=== PATIENT | male | born 1935 | race Caucasian/White ===

== ENCOUNTER 2017-09-25 19:53 | Inpatient (IN) | payer SELFPAY ==
[~2017-09-25] VITALS: Ht 182.9 cm; Wt 108.9 kg
[2017-09-25] MEDS ORDERED: ATROPINE SULFATE 0.4 MG/1 ML VIAL ONE (20:14)
[2017-09-25] MEDS ORDERED: SODIUM BICARBONATE 8.4% INJ 50ML SYRINGE ONE (20:30)
[2017-09-25] MEDS ORDERED: ALBUTEROL SULF 2.5 MG/0.5ML(0.5%) NEB SOLN NEB ONE (20:30)
[2017-09-25] MEDS ORDERED: ALBUTEROL SULF 2.5 MG/0.5ML(0.5%) NEB SOLN ONE (20:33)
[2017-09-25] MEDS ORDERED: NOREPINEPHRINE 16 MG/500ML KIT 500 ML IV SCH (20:48)
[2017-09-25] MEDS ORDERED: DOPamine 1600MCG/ML D5W 250 ML IV SCH (20:48)
[2017-09-25] MEDS ORDERED: SODIUM CHLORIDE 0.9% 1,000 ML IV ONE (21:00)
[2017-09-25] MEDS ORDERED: ATROPINE SULFATE 0.4 MG/1 ML VIAL IV ONE (21:00)
[2017-09-25 21:10] LABS: Urine Bacteria NONE SEEN /hpf (None Seen); Urine Blood Negative /uL (Negative); Urine Specific Gravity 1.007 (1.001-1.035); Urine WBC 1 /hpf (0 - 3)
[2017-09-25 21:12] VITALS: BP 70/44
[2017-09-25 21:16] LABS: Amphetamine Screen, Urine NEGATIVE (NEGATIVE); Barbiturate Scree,Urine NEGATIVE (NEGATIVE); Benzodiazephine Screen, Urine NEGATIVE (NEGATIVE); Cannabinoid Screen, Urine NEGATIVE (NEGATIVE); Cocaine Screen, Urine NEGATIVE (NEGATIVE); Opiate Scree,Urine NEGATIVE (NEGATIVE); Phencyclidine Screen, Urine NEGATIVE (NEGATIVE)
[2017-09-25] MEDS ORDERED: DEXTROSE (50%) 50ML SYRG IV ONE (21:30)
[2017-09-25 21:49] LABS: Albumin 2.7 g/dL (3.4-5.0); BUN/Creatinine Ratio 11.1; Calcium 8.2 mg/dL (8.5-10.1); Magnesium 3.1 mg/dL (1.6-2.6)
[2017-09-25 21:50] LABS: Hematocrit 48.1 % (41.0-53.0); Hemoglobin 15.3 g/dL (13.5-17.5); Mean Corpuscular Hemoglobin 33.5 pg (28.0-32.0); Mean Corpuscular Hgb Conc. 31.7 g/dL (32.0-36.0); Mean Corpuscular Volume 105.7 fL (80.0-100.0); Platelet Count (auto) 258 10^3/uL (140-450); Red Blood Cells 4.55 10^6/uL (4.5-5.90); Red Cell Distribution Width 15.2 % (11.8-14.3); White Blood Cell 22.3 10^3/uL (4.4-10.8)
[2017-09-25 21:54] LABS: Basophils % (manual) 0 (0.0-2.0); Blast Cells 0; Eosinophils % (manual) 0 (0-7); Lactic Acid w/Reflex 13.7 mmol/L (0.4-2.0); Myelocytes % 0; Promyelocytes % 0; Reactive Lymphocytes 0
[2017-09-25 21:58] LABS: Bilirubin, Total 0.5 mg/dL (0.2-1.0); Total Protein 7.2 g/dL (6.4-8.2)
[2017-09-25] MEDS ORDERED: THIAMINE INJ 100 MG, MULTIPLE VITAMIN 10 ML, FOLIC ACID 1 MG, MAGNESIUM SULF SDV 50% 8 ... IV SCH ×5 (22:00)
[2017-09-25] MEDS ORDERED: MVI in SODIUM CHLORIDE 0.9% 1,010 ML ONE (22:08)
[2017-09-25] MEDS ORDERED: HETASTARCH 500 ML IV ONE ×2 (22:19→22:30)
[2017-09-25 22:50] VITALS: BP 68/40
[2017-09-25 22:50] LABS: Band Neutrophils % (manual) 5; Lymphocytes % (manual) 25 (10.0-50.0); Metamyelocytes % 2; Monocytes % (manual) 3 (0-12)
[2017-09-25] MEDS ORDERED: DEXTROSE (50%) 50ML SYRG IV PRN (23:00)
[2017-09-25] MEDS: PIPERACILLIN-TAZOB 3.375GM 100 ML IV SCH (23:00)
[2017-09-25] MEDS ORDERED: VASOPRESSIN 50 UNITS in D5W 5% 247.5 ML IV SCH (23:00)
[2017-09-25] MEDS ORDERED: NITROGLYCERIN 0.4 MG SL TAB SL PRN (23:00)
[2017-09-25] MEDS ORDERED: ACETAMINOPHEN 325 MG TAB PO PRN (23:00)
[2017-09-25] MEDS ORDERED: SODIUM BICARBONATE 50ML VIAL 100 ML in SOD CHL 0.45% 1,000 ML IV SCH (23:00)
[2017-09-25] MEDS ORDERED: SODIUM BICARBONATE 8.4 % INJ 50ML VIAL IV ONE (23:00)
[2017-09-25] MEDS ORDERED: MORPHINE SULFATE 8mg/ml INJ SDV IV PRN (23:00)
[2017-09-25] MEDS ORDERED: VANCOMYCIN PER PHARMACY 0 MG IV SCH (23:00)
[2017-09-25] MEDS ORDERED: VANCOMYCIN 1,500 MG in D5W 5% 250 ML IV ONE (23:15)
[2017-09-25] MEDS ORDERED: VANCOMYCIN 1GM/250ML 250 ML IV ONE (23:17)
[2017-09-25 23:18] VITALS: BP 68/40
[2017-09-26] MEDS ORDERED: InsuLIN REG 1unit/0.01ml Soln (100units/ml) SC SCH
[2017-09-26] MEDS ORDERED: ACCU-CHEK COMFORT CURVE STRIP VI SCH
[2017-09-26] MEDS: PIPERACILLIN-TAZOB 3.375GM 100 ML IV SCH
[2017-09-26 00:18] LABS: INR 1.68 (0.9-1.15); Partial Thromboplastin Time 54.1 sec (22.64-33.71); Prothrombin Time 18.4 sec (9.37-12.3)
[2017-09-26] MEDS ORDERED: MIDAZOLAM DRIP 50 mg/50mL 50 ML IV SCH (00:21)
[2017-09-26 00:24] VITALS: BP 94/64
[2017-09-26] MEDS ORDERED: VASOPRESSIN 20 UNIT/ML ONE ×2 (00:27→00:37)
[2017-09-26 02:26] VITALS: BP 77/52
[2017-09-26] MEDS ORDERED: SODIUM BICARBONATE 8.4% INJ 50ML SYRINGE ONE (02:38)
[2017-09-26] MEDS ORDERED: SODIUM BICARBONATE 8.4 % INJ 50ML VIAL IV ONE (02:45)
[2017-09-26] MEDS ORDERED: LACTATED RINGER'S 1,000 ML IV ONE (03:00)
[2017-09-26 03:45] VITALS: BP 91/56
[2017-09-26] MEDS ORDERED: DOPamine 1600mCg/ml 400MG/250ml NSorD5 KIT/BAG IV ONE (04:44)
[2017-09-26] MEDS ORDERED: SODIUM BICARBONATE 8.4% INJ 50ML SYRINGE IV ONE (04:44)
[2017-09-26] MEDS ORDERED: ATROPINE SULF 0.5 MG/5ML SYR IV ONE (04:44)
[2017-09-26] MEDS ORDERED: ENOXAPARIN SOD 30 MG/0.3 ML SYRINGE SC SCH (10:00)
[2017-09-26] MEDS ORDERED: ASPirin 81 mg TAB PO SCH (10:00)
[2017-09-26] MEDS ORDERED: PANTOPRAZOLE 40 MG/10 ML VIAL IV SCH (10:00)
[2017-09-26] MEDS ORDERED: VANCOMYCIN 1,250 MG in D5W 5% 250 ML IV SCH (21:00)
== END 2017-09-26 04:45 | disposition expired | DRG 871 ==
LOC: EDBD 19:53 → ER 19:53 → TELE 19:54
PROVIDERS: ADMIT Nurse Practitioner; ATTEND Nurse Practitioner
PROC: 5A1935Z Respiratory Ventilation, Less than 24 Consecutive Hours (ICD-10-PCS; principal; 2017-09-25)
PROC: 5A12012 Performance of Cardiac Output, Single, Manual (ICD-10-PCS; 2017-09-25)
PROC: 0BH17EZ Insertion of Endotracheal Airway into Trachea, Via Natural or Artificial Opening (ICD-10-PCS; 2017-09-25)
DX: A41.9 Sepsis, unspecified organism (principal); J96.00 Acute respiratory failure, unspecified whether with hypoxia or hypercapnia; I46.9 Cardiac arrest, cause unspecified; G93.1 Anoxic brain damage, not elsewhere classified; E87.2 Acidosis; I95.9 Hypotension, unspecified; E11.9 Type 2 diabetes mellitus without complications; F10.129 Alcohol abuse with intoxication, unspecified; Z66 Do not resuscitate
CPT/HCPCS: 31500; 36415; 36556; 36600; 70450; 71045; 71250; 72125; 80053; 80307; 81001; 82805; 82962; 83605; 83735; 83880; 84484; 85007; 85027; 85610; 85730; 87040; 94002; 94640; 96365; 96375; 99291; J0461; J2250; J2543; J3490; J7060